=== PATIENT | female | born 1990 | race American Indian/Alaskan Native ===

== ENCOUNTER 2016-06-16 22:56 | Emergency (ER) | payer SELFPAY ==
[2016-06-16 23:08] VITALS: BP 132/86
--- NOTE | 2016-06-16 23:18 | EDM.PDOC ---
ED HPI GENERAL MEDICAL PROBLEM - General Chief Complaint: ENT Problem Stated Complaint: PAIN EAR Time Seen by Provider: 06/16/16 23:05 - History of Present Illness INITIAL COMMENTS - FREE TEXT/NARRATIVE: HISTORY AND PHYSICAL: History of present illness: The patient is a 26-year-old female who presents with complaints of feeling like there is moving her left ear and that she has had debris coming out of her ear as well as her face breaking out in a rash. The patient states she has had issues with breakouts of her face and her face is not swollen but she thinks that there are mites on her face and in her ears. She's had no fever chills chest pain or shortness of breath no abdominal complaints patient is on her period currently. Patient says that when she gets anxious, which is how she feels now, she does get nauseated and she feels lightheaded. Review of systems: As per history of present illness and below otherwise all systems reviewed and negative. Past medical history: As per history of present illness and as reviewed below otherwise noncontributory. Surgical history: As per history of present illness and as reviewed below otherwise noncontributory. Social history: No reported history of drug or alcohol abuse. Family history: As per history of present illness and as reviewed below otherwise noncontributory. Physical exam: General: Well-developed mildly overweight female who is very anxious in the room hyperventilating and seems very distressed from my exam. She's able to be redirected and calmed down. HEENT: Atraumatic, normocephalic, pupils reactive, negative for conjunctival pallor or scleral icterus, mucous membranes moist, throat clear, neck supple, nontender, trachea midline. There is no cervical adenopathy or nuchal rigidity and the TMs are dull bilaterally. There is some external canal debris and cerumen seen on the left but there is no foreign object seen or any gross drainage. Lungs: Clear to auscultation, breath sounds equal bilaterally, chest nontender. Heart: S1S2, regular, negative for clicks, rubs, or JVD. Abdomen: Soft, nondistended, nontender. NABS Genitourinary: Deferred. Rectal: Deferred. Extremities: Atraumatic, negative for cords or calf pain. Neurovascular unremarkable. Neuro: Awake, alert, oriented. Cranial nerves II through XII unremarkable. Cerebellum unremarkable. Motor and sensory unremarkable throughout. Exam nonfocal. Diagnostics: [] Therapeutics: [] I told the patient that we would treat her as an otitis externa and that she should use mild soap for her face and Benadryl she felt that there was itching. I will prescribe her Cortisporin theInsty Meds Impression: Left otitis externa Definitive disposition and diagnosis as appropriate pending reevaluation and review of above. left ear Pain Score (Numeric/FACES): 8 - Related Data Allergies Allergy/AdvReac Type Severity Reaction Status Date / Time amoxicillin Allergy Hives Verified 06/16/16 23:05 Home Meds: Home Meds Medication For Siatica 06/16/16 [History] Past Medical History Cardiovascular History: Reports: None Respiratory History: Reports: None Gastrointestinal History: Reports: None Genitourinary History: Reports: None Neurological History: Reports: None Psychiatric History: Reports: None Endocrine/Metabolic History: Reports: None - Infectious Disease History Infectious Disease History: Reports: None - Past Surgical History HEENT Surgical History: Reports: Tonsillectomy Social & Family History - Family History Family Medical History: Noncontributory - Tobacco Use Smoking Status *Q: Current Every Day Smoker Years of Tobacco use: 5 Packs/Tins Daily: 1 - Recreational Drug Use Recreational Drug Use: Yes Recreational Drug Type: Reports: Marijuana/Hashish Recreational Drug Use Frequency: Socially ED ROS GENERAL - Review of Systems Review Of Systems: ROS reveals no pertinent complaints other than HPI. ED EXAM, GENERAL - Physical Exam Exam: See Below (See dictation) Course - Vital Signs Last Recorded V/S: Last Vital Signs Temp 36.7 C 06/16/16 23:06 Pulse 97 06/16/16 23:06 Resp 16 06/16/16 23:06 BP 132/86 06/16/16 23:06 Pulse Ox 99 06/16/16 23:06 Departure - Departure Time of Disposition: 23:17 Disposition: Home, Self-Care 01 Condition: good Clinical Impression: Otitis externa Qualifiers: Otitis externa type: unspecified type Laterality: left Chronicity: unspecified Qualified Code(s): H60.92 - Unspecified otitis externa, left ear Forms: ED Department Discharge Additional Instructions: The following information is given to patients seen in the emergency department who are being discharged to home. This information is to outline your options for follow-up care. We provide all patients seen in our emergency department with a follow-up referral. The need for follow-up, as well as the timing and circumstances, are variable depending upon the specifics of your emergency department visit. If you don't have a primary care physician on staff, we will provide you with a referral. We always advise you to contact your personal physician following an emergency department visit to inform them of the circumstance of the visit and for follow-up with them and/or the need for any referrals to a consulting specialist. The emergency department will also refer you to a specialist when appropriate. This referral assures that you have the opportunity for followup care with a specialist. All of these measure are taken in an effort to provide you with optimal care, which includes your followup. Under all circumstances we always encourage you to contact your private physician who remains a resource for coordinating your care. When calling for followup care, please make the office aware that this follow-up is from your recent emergency room visit. If for any reason you are refused follow-up, please contact the [facility] emergency department at and ask to speak to the emergency department charge nurse. [facility] Primary care- Internal Medicine and Family [address] [id number] Please use antibiotic drops, Cortisporin, that were prescribed to you in your ear for the next 7 days and please call and followup with primary care physician. He may also take [id number] Benadryl for any itching and use a mild soap to your face. Return to ER as needed and as discussed
== END 2016-06-16 23:56 | disposition home or self-care (01) ==
LOC: MW.ED 22:56 → MERGE 22:56 → EDBD 22:56 → MW.ED 23:55
DX: H60.92 Unspecified otitis externa, left ear (principal); F17.210 Nicotine dependence, cigarettes, uncomplicated; Z88.0 Allergy status to penicillin; Z98.890 Other specified postprocedural states
CPT/HCPCS: 99283